=== PATIENT | male | born 1970 | race Caucasian/White ===

== ENCOUNTER 2023-12-16 20:00 | Emergency (ER) | payer OTHER, SELFPAY ==
[2023-12-16 20:01] VITALS: BP 163/108; PULSE 53; RESP 16; TEMP 36.3; O2SAT 100
--- NOTE | 2023-12-16 20:15 | DI.CT_ITS ---
Exam(s) CT ABDOMEN PELVIS W EXAM: CT ABDOMEN PELVIS W CLINICAL HISTORY: LUQ tenderness. TECHNIQUE: Imaging Protocol: Axial computed tomography images with coronal and sagittal reformatted images were created and reviewed CONTRAST MATERIAL: Intravenous: Omnipaque 350 Contrast volume:100 ml Oral: no COMPARISON: No exams were available for comparison FINDINGS: ABDOMEN and PELVIS: Lung Bases: No acute findings. Liver: Moderate steatosis. No suspicious mass. Gallbladder and biliary tract: No radiodense calculus. No biliary dilation. Pancreas: Normal density. No abnormal calcifications or inflammatory process. No evidence of mass. Spleen: Normal. Kidneys: Normal size, contour and axis. No radiodense stones. No obstructive uropathy. Cyst lower p ole right kidney. No follow-up recommended. No suspicious masses seen. Adrenal glands: No masses seen. Vasculature: Abdominal aorta non-dilated. Soft tissues: Unremarkable. Bladder: No gross wall thickening. No calculi.No focal mass. Bowel: No obstruction. No bowel wall thickening. Mild diverticulosis. Appendix normal. Peritoneal cavity: No ascites. No focal collection. No mesenteric inflammatory response. Bones: Left L5 spondylolysis. No evidence of spondylolisthesis. Mild degenerative changes. Reproductive organs: Unremarkable. Lymph nodes: No pathologically enlarged lymph nodes. IMPRESSION:: No acute abnormality in the abdomen or pelvis. RADIATION DOSE DELIVERED: 522.08mGy.cm Total DLP DATA REPOSITORY: All CT scans at this facility are submitted to the National Radiology Data Registry (NRDR) Dose Index Registry (DIR) with the [employer] ([employer]). RADIATION OPTIMIZATION: All CT scans at this facility use at least one of these dose optimization te chniques: automated exposure control; mA and/or kV adjustment per patient size (includes targeted exa ms where dose is matched to clinical indication); or iterative reconstruction.
--- NOTE | 2023-12-16 20:19 | W.ED.GENAD ---
Discharge Plan Disposition Patient Disposition: Home Condition: Stable Discharge Details Clinical Impression: Abdominal pain of unknown cause Primary Care Provider: None,None ED Provider: Jermain Hinkle Home Meds and New Rx's Prescriptions: Continued metoprolol tartrate 25 mg tablet 25 mg PO BID pravastatin 20 mg tablet 20 mg PO QHS aspirin 81 mg capsule 81 mg PO DAILY omega 0-zka-xtm-fish oil [Fish Oil] 1,200 (144-216) mg capsule 1,200 cap PO BID PRN Discharge Instructions Instructions: Abdominal Pain, Adult ED Additional Instructions: You were seen in the emergency department for your left-sided abdominal pain, this may be an abdominal wall muscle strain or constipation, we are providing MiraLAX for trial of relief at home, please seek GI referral from your primary care provider, please return to the ER for fever, nausea vomiting of an intractable nature, black or bloody stools, severe increase in abdominal pain. There was no acute emergent findings on your laboratory workup besides a mild elevation of bilirubin likely due to your known fatty liver issues, there is no signs of infection or electrolyte abnormality. HPI General Date/Time Provider Initiated Documentation: 12/16/23 20:11. HPI Narrative: 53 year-old male presents to ED today by POV/ambulating with a chief complaint of L sided abdominal pain, nausea, loose stools, progressing over the past 10 days. Quality described as sharp pain in L abdomen, no radiation to black or bloody stools, intractable vomiting, fever, cough, shortness of breath, chest pain. Severity is described as severe. Palliating factors include tried cutting out various food groups with no success. Provoking factors include nothing specific. Events leading up to the incident/Associated Symptoms: Patient denies abdominal surgical history. Patient not anticoagulated. Related Data Home Medications ?Medication ?Instructions ?Recorded ?Confirmed aspirin 81 mg capsule 81 mg PO DAILY 12/16/23 12/16/23 metoprolol tartrate 25 mg tablet 25 mg PO BID 12/16/23 12/16/23 omega 9-prt-wsu-fish oil 1,200 mg 1,200 cap PO BID PRN 12/16/23 12/16/23 (144 mg-216 mg) capsule (Fish Oil) pravastatin 20 mg tablet 20 mg PO QHS 12/16/23 12/16/23 Allergies Allergy/AdvReac Type Severity Reaction Status Date / Time No Known Allergies Allergy Unverified 12/16/23 20:08 General Stated Complaint: Abd Prob ROXY: 3 Review of Systems All systems reviewed & are unremarkable except as noted in HPI and below Exam Narrative Exam Narrative: GENERAL APPEARANCE: Well-nourished, non-toxic, awake and alert, atraumatic, no acute distress. SKIN: Warm, pink, dry, intact, without rashes/lesions/ulcerations. HEAD: Normocephalic, atraumatic, normal hair distribution for gender/age. EYES: Normal conjunctiva, no exudates on lids/lashes. ENT: Nares patent, no circumoral cyanosis, no facial swelling NECK: Supple, trachea midline, painless cervical ROM. LUNGS/CHEST: Lungs CTA bilaterally, non-labored respirations, normal A/P diameter, symmetrical expansion, no chest wall deformity HEART (CV/PV): Regular rate and rhythm without murmur, no peripheral edema, no JVD. ABDOMEN: Soft, non-distended, no guarding, L sided abdominal tenderness over oblique area, negative Yeung's sign, no McBurney's point tenderness, no Rovsing's, no rebound tenderness. MSK: Normal ROM, no swelling/deformity to bilateral UEs or LEs, moving all extremities without weakness, no cyanosis, spine midline without tenderness, normal curvature. NEURO: Mental Status AAOx4 - alert to person, place, time, events No facial droop, no forehead involvement. Motor: No focal weakness - strength 5/5 in bilateral UEs and LEs, proximal and distal, symmetric. Sensory: sensation intact to light touch globally. Gait normal: patient ambulated without ataxia into ED room. PSYCH: euthymic, cooperative, pleasant, appropriate speech Course Vital Signs Vital signs: Vital Signs Temperature 36.3 C L 12/16/23 20:01 Pulse 53 L 12/16/23 20:01 Respiratory Rate 16 12/16/23 20:01 Blood Pressure 163/108 H 12/16/23 20:01 Pulse Oximetry 100 12/16/23 20:01 Temperature 36.3 C L 12/16/23 20:01 Temperature Source Temporal Artery Scan 12/16/23 20:01 Pulse 53 L 12/16/23 20:01 Respiratory Rate 16 12/16/23 20:01 Respiratory Effort Normal 12/16/23 20:07 Blood Pressure 163/108 H 12/16/23 20:01 Blood Pressure Position Sitting 12/16/23 20:01 Pulse Oximetry 100 12/16/23 20:01 Oxygen Delivery Method Room Air 12/16/23 20:01 Oxygen Flow Rate 0 12/16/23 20:01 Pain Level 3 12/16/23 20:01 Medical Decision Making This dictation utilizes [id number] dictation software and may contain unedited grammatical errors. 53 year-old male presents to ED today by POV/ambulating with a chief complaint of L sided abdominal pain, nausea, loose stools, progressing over the past 10 days. Quality described as sharp pain in L abdomen, no radiation to black or bloody stools, intractable vomiting, fever, cough, shortness of breath, chest pain. Severity is described as severe. Palliating factors include tried cutting out various food groups with no success. Provoking factors include nothing specific. Events leading up to the incident/Associated Symptoms: Patient denies abdominal surgical history. Patients' medical history: noncontributory. Family and social history: noncontributory. Pertinent exam findings / vital signs include left-sided abdominal tenderness over the lower ribs/oblique area, no overt left lower quadrant tenderness or McBurney's point tenderness, negative Yeung sign, nontoxic and afebrile, benign cardiopulmonary exam. Differential / pathologies of concern include colitis, diverticulitis, inflammatory bowel disease, IBS, renal colic, pancreatitis, gastritis, gastroenteritis. Diagnostic studies of: -CBC, CMP, lipase, magnesium, lactate, procalcitonin, CRP/ESR, Conj. Bilirubin, UA, CT abdomen/pelvis with contrast. -CBC shows no leukocytosis or other abnormalities -Lactate negative, procalcitonin negative-do not suspect sepsis -CMP shows no electrolyte abnormalities, does show significantly elevated bilirubin at 2.9, reflex to conjugated bilirubin shows elevation to 0.4. -UA shows trace blood and urobilinogen -CRP/ESR negative -CT shows possible fatty liver, moderate amount of stool, no other emergent abnormalities Interventions of: -1L IVF LR, 1g IV APAP, 15mg IV toradol, 4mg IV Zofran. ED Course/Assessment/Plan: 53-year-old male presents with progressing left-sided abdominal pain and nausea for the past 10 days, he has a known fatty liver issue mildly elevated bilirubin on labs, there is no evidence of emergent pathology on CT, no obstruction, I do recommend he try MiraLAX at home tonight, take Tylenol and ibuprofen and seek GI referral from primary care, strict return criteria for severe increase in abdominal pain, black or bloody stools, intractable nausea or vomiting, fevers. Findings not consistent with SBO, diverticulitis, Crohn's/IBD, biliary pathology. Disposition of Abdominal pain of unknown cause. Patient verbalized understanding of the plan and return to ED criteria and engaged in shared decision making. Medical Records Medical records reviewed: Yes I reviewed the patient's medical records. Imaging Data Radiologic Study: Attestation: I personally reviewed and interpreted this imaging study as follows: Imaging: CT Scan My impression: Moderate amount of stool, no obstruction, no diverticulitis, no gallstones/dilated biliary tree Radiologist's impression: Exam: CT Abdomen And Pelvis With Contrast Exam date and time: 12/16/2023 8:40 PM Age: 53 years old Clinical indication: Abdominal pain; Localized; Left upper quadrant (luq); Patient HX: Luq pain for 10 days TECHNIQUE: Imaging protocol: Computed tomography of the abdomen and pelvis with contrast. Radiation optimization: All CT scans at this facility use at least one of these dose optimization techniques: automated exposure control; mA and/or kV adjustment per patient size (includes targeted exams where dose is matched to clinical indication); or iterative reconstruction. Contrast material: OMNIPAQUE 350; Contrast volume: 100 ml; Contrast route: INTRAVENOUS (IV); COMPARISON: No relevant prior studies available. FINDINGS: Lungs: Minimal dependent atelectasis. Liver: Possible fatty infiltration of the liver, difficult to confidently diagnose by CT imaging after administration of intravenous contrast. Gallbladder and biliary ducts: Gallbladder partially collapsed. No calcified gallstones seen. No biliary dilatation. Pancreas: Normal appearing pancreas. Spleen: Normal appearing spleen. Adrenal glands: Normal appearing adrenal glands. Kidneys and ureters: 3 cm right renal cyst. Small indeterminate hypoattenuating right renal lesion, not well characterized but statistically most likely a small renal cyst. Otherwise normal-appearing kidneys. No obstructing ureteral stones, hydronephrosis, or evidence of recent stone passage. Stomach and bowel: No oral contrast. Stomach partially distended with ingested material. No small bowel dilatation to suggest obstruction. Normal-appearing colon. No evidence of diverticulitis or colitis. Appendix: Normal appendix. Intraperitoneal space: No gross ascites or free air. Vasculature: Normal caliber abdominal aorta. Lymph nodes: No pathologically enlarged mesenteric, retroperitoneal, or pelvic sidewall lymph nodes. Urinary bladder: Urinary bladder partially decompressed but circumferentially thick-walled with hazy indistinctness of the bladder margins. Reproductive: Normal-appearing prostate gland and seminal vesicles. Bones/joints: No acute fracture seen among the bones of the abdomen or pelvis. Spondylolysis on the left and spina bifida occulta at L5. No associated spondylolisthesis. Small anterior osteophytes at multiple levels. Soft tissues: Small fat containing ventral hernia at the umbilicus. IMPRESSION: 1. No acute bowel pathology demonstrated. 2. No obstructing ureteral stones, hydronephrosis, or evidence of recent stone passage. 3. Urinary bladder partially decompressed but circumferentially thick-walled with hazy indistinctness of the bladder margins. Acute cystitis could have this appearance although an artifactual appearance created by underdistention can also produce apparent bladder wall thickening. Clinical correlation is recommended. 4. Possible fatty infiltration of the liver, difficult to confidently diagnose by CT imaging after administration of intravenous contrast. Dictated and Authenticated by: Pilo Mirza MD. Lab Data Lab results reviewed: Yes I reviewed the patient's lab results. Labs: Laboratory Tests Range/Units 12/16/23 12/16/23 12/16/23 20:32 20:37 20:44 WBC (4.4-10.8) 10^3/uL 4.12 L RBC (4.36-5.78) 10^6/uL 4.88 Hgb (13.5-17.5) g/dL 14.7 Hct (40.0-50.0) % 41.7 MCV (80-95) fL 86 MCH (27.0-33.0) pg 30.1 MCHC (32.0-36.0) % 35.3 RDW (11.8-14.1) % 12.2 Plt Count (130-400) 10^3/uL 154 MPV (8.0-11.0) fL 9.3 Immature Gran % % 0.2 Neutrophils % % 46.7 Lymphocytes % % 37.6 Monocytes % % 12.6 Eosinophils % % 2.4 Basophils % % 0.5 Nucleated RBC % (0.0-0.3) % 0.0 Absolute Neutrophils (1.2-6.7) 10^3/uL 1.92 Absolute Lymphocytes (1.2-3.4) 10^3/uL 1.55 Absolute Monocytes (0.1-0.8) 10^3/uL 0.52 Absolute Eosinophils (0.0-0.7) 10^3/uL 0.10 Absolute Basophils (0.0-0.2) 10^3/uL 0.02 ESR (0-20) mm/hr < 1 VBG Lactate (0.6-1.4) mmol/L 1.1 Sodium (136-145) mmol/L 139 Potassium (3.5-5.1) mmol/L 4.3 Chloride (98-107) mmol/L 104 Carbon Dioxide (21.0-32.0) mmol/L 28.4 Anion Gap (3-11) mmol/L 6.6 BUN (7-18) mg/dL 18 Creatinine (0.70-1.30) mg/dL 1.3 Est GFR (CKD-EPI 2020) (mL/min/1.73m2) 66.10 Glucose (74-106) mg/dL 107 H Calcium (8.5-10.1) mg/dL 9.4 Magnesium (1.8-2.4) mg/dL 2.1 Total Bilirubin (0.2-1.0) mg/dL 2.92 H Conjugated Bilirubin (0.0-0.2) mg/dL 0.4 H AST (15-37) U/L 30 ALT (16-63) U/L 76 H Alkaline Phosphatase (46-116) U/L 84 C-Reactive Protein (<or=0.5) mg/dL < 0.50 Total Protein (6.4-8.2) g/dL 7.0 Albumin (3.4-5.0) g/dL 4.1 Lipase (16-77) U/L 70 Procalcitonin ng/mL < 0.1 Urine Color (Yellow) Yellow Urine Clarity (Clear) Clear Urine pH (5-8) 6.5 Ur Specific [place] (1.005-1.025) 1.025 Urine Protein (Neg-Trace) mg/dL Negative Urine Ketones (Negative) mg/dL Negative Urine Blood (Negative) Trace-intact H Urine Nitrite (Negative) Negative Urine Bilirubin (Negative) Negative Urine Urobilinogen (Up to 0.2) mg/dL 1.0 H Ur Leukocyte Esterase (Negative) Negative Urine RBC (0-2) HPF 3-5 H Urine WBC (0-5) HPF 0-2 Ur Epithelial Cells (Negative) HPF Negative Urine Crystals (Negative) HPF Negative Urine Bacteria (Negative) HPF Negative Urine Casts (Negative) LPF Negative Urine Mucus (Negative) Negative Ur Culture Indicated? No Urine Glucose (Negative) mg/dL Negative Quality:SDOH Health Related Social Needs: No Data to Display PFSH All Active Problems (Updated 12/16/23 @ 22:01 by SABA Patel) Abdominal pain of unknown cause (Acute) Social History Smoking risk assessment performed?: No
[2023-12-16] MEDS: Omnipaque 350 MG/ML 100 ML BTL IJ (20:47)
[2023-12-16] MEDS: Normal Saline - Diluent 50 ML VIAL IJ (20:48)
[2023-12-16 20:50] LABS: ESR < 1 mm/hr (0-20); Lactate 1.1 mmol/L (0.6-1.4)
[2023-12-16] MEDS: Ketorolac 15 MG/ML VIAL IVP (20:50)
[2023-12-16] MEDS: ACETAMINOPHEN 1,000 MG/100 ML BTL 400 MG IVPB (20:50)
[2023-12-16] MEDS: Ondansetron 4 MG/2 ML VIAL IVP (20:51)
[2023-12-16] MEDS: Lactated Ringers 1,000 ML 1000 ML IV (20:51)
[2023-12-16 20:53] LABS: Abs Immature Grans 0.01 10^3/uL (0.0-0.06); Absolute Basophil Count 0.02 10^3/uL (0.0-0.2); Absolute Lymphocyte Count 1.55 10^3/uL (1.2-3.4); Absolute Monocyte Count 0.52 10^3/uL (0.1-0.8); Absolute Neutrophil Count 1.92 10^3/uL (1.2-6.7); Basophils % 0.5 %; Eosinophils % 2.4 %; HCT 41.7 % (40.0-50.0); HGB 14.7 g/dL (13.5-17.5); Immature Grans % 0.2 %; Lymphocytes % 37.6 %; MCH 30.1 pg (27.0-33.0); MCHC 35.3 % (32.0-36.0); MCV 86 fL (80-95); MPV 9.3 fL (8.0-11.0); Monocytes % 12.6 %; Neutrophils % 46.7 %; Platelet Count 154 10^3/uL (130-400); RBC 4.88 10^6/uL (4.36-5.78); RDW 12.2 % (11.8-14.1); RDW-SD 37.8 fL; WBC 4.12 10^3/uL (4.4-10.8)
[2023-12-16 20:57] LABS: Bilirubin Negative (Negative); Blood Trace-intact (Negative); Clarity Clear (Clear); Glucose Negative (Negative); Ketones Negative (Negative); Leukocyte Esterase Negative (Negative); Nitrite Negative (Negative); Specific Gravity 1.025 (1.005-1.025); pH 6.5 (5-8)
[2023-12-16 21:02] LABS: Bacteria Negative HPF (Negative); C & S Indicated? No; Casts Negative LPF (Negative); Crystals Negative HPF (Negative); Epithelial Cells Negative HPF (Negative); Mucus Negative (Negative); WBC 0-2 HPF (0-5)
[2023-12-16 21:08] LABS: ALT 76 U/L (16-63); AST 30 U/L (15-37); Albumin 4.1 g/dL (3.4-5.0); Alkaline Phosphatase 84 U/L (46-116); Anion Gap 6.6 mmol/L (3-11); BUN 18 mg/dL (7-18); Bilirubin, Total 2.92 mg/dL (0.2-1.0); CO2 28.4 mmol/L (21.0-32.0); CREATININE 1.3 mg/dL (0.70-1.30); Calcium 9.4 mg/dL (8.5-10.1); Chloride 104 mmol/L (98-107); Glucose 107 mg/dL (74-106); Lipase 70 U/L (16-77); Magnesium 2.1 mg/dL (1.8-2.4); Potassium 4.3 mmol/L (3.5-5.1); Sodium 139 mmol/L (136-145)
[2023-12-16 21:10] LABS: C-Reactive Protein < 0.50 mg/dL (<or=0.5)
[2023-12-16 21:22] LABS: Procalcitonin < 0.1 ng/mL
[2023-12-16 21:39] LABS: Bilirubin, Direct 0.4 mg/dL (0.0-0.2)
--- NOTE | 2023-12-16 21:52 | DI.VRAD_ITS ---
PROCEDURE INFORMATION: Exam: CT Abdomen And Pelvis With Contrast Exam date and time: 12/16/2023 8:40 PM Age: 53 years old Clinical indication: Abdominal pain; Localized; Left upper quadrant (luq); Patient HX: Luq pain for 10 days TECHNIQUE: Imaging protocol: Computed tomography of the abdomen and pelvis with contrast. Radiation optimization: All CT scans at this facility use at least one of these dose optimization techniques: automated exposure control; mA and/or kV adjustment per patient size (includes targeted exams where dose is matched to clinical indication); or iterative reconstruction. Contrast material: OMNIPAQUE 350; Contrast volume: 100 ml; Contrast route: INTRAVENOUS (IV); COMPARISON: No relevant prior studies available. FINDINGS: Lungs: Minimal dependent atelectasis. Liver: Possible fatty infiltration of the liver, difficult to confidently diagnose by CT imaging after administration of intravenous contrast. Gallbladder and biliary ducts: Gallbladder partially collapsed. No calcified gallstones seen. No biliary dilatation. Pancreas: Normal appearing pancreas. Spleen: Normal appearing spleen. Adrenal glands: Normal appearing adrenal glands. Kidneys and ureters: 3 cm right renal cyst. Small indeterminate hypoattenuating right renal lesion, not well characterized but statistically most likely a small renal cyst. Otherwise normal-appearing kidneys. No obstructing ureteral stones, hydronephrosis, or evidence of recent stone passage. Stomach and bowel: No oral contrast. Stomach partially distended with ingested material. No small bowel dilatation to suggest obstruction. Normal-appearing colon. No evidence of diverticulitis or colitis. Appendix: Normal appendix. Intraperitoneal space: No gross ascites or free air. Vasculature: Normal caliber abdominal aorta. Lymph nodes: No pathologically enlarged mesenteric, retroperitoneal, or pelvic sidewall lymph nodes. Urinary bladder: Urinary bladder partially decompressed but circumferentially thick-walled with hazy indistinctness of the bladder margins. Reproductive: Normal-appearing prostate gland and seminal vesicles. Bones/joints: No acute fracture seen among the bones of the abdomen or pelvis. Spondylolysis on the left and spina bifida occulta at L5. No associated spondylolisthesis. Small anterior osteophytes at multiple levels. Soft tissues: Small fat containing ventral hernia at the umbilicus. IMPRESSION: 1. No acute bowel pathology demonstrated. 2. No obstructing ureteral stones, hydronephrosis, or evidence of recent stone passage. 3. Urinary bladder partially decompressed but circumferentially thick-walled with hazy indistinctness of the bladder margins. Acute cystitis could have this appearance although an artifactual appearance created by underdistention can also produce apparent bladder wall thickening. Clinical correlation is recommended. 4. Possible fatty infiltration of the liver, difficult to confidently diagnose by CT imaging after administration of intravenous contrast. Dictated and Authenticated by: Pilo Mirza MD. Ordering:ISHMAEL Aly MD
[2023-12-16 21:56] VITALS: BP 138/88; PULSE 57; RESP 12; TEMP 36.6; O2SAT 99
== END 2023-12-16 22:41 | disposition home or self-care (01) ==
PROVIDERS: Emergency Provider Physician Assistant
DX: R10.12 Left upper quadrant pain (principal); R11.0 Nausea; Z79.82 Long term (current) use of aspirin
CPT/HCPCS: 80053; 83690; 84145; 85652; 96365; 96375; 99285; 74177; 81003; 81015; 82248; 83605; 83735; 85025; 86140; 99284; J0131; J1885; J2405; J3490

== ENCOUNTER 2024-05-15 02:02 | Outpatient (CLI) | payer OTHER, SELFPAY ==
[2024-05-15 08:46] LABS: Calculated LDL 92 mg/dL (<100); Cholesterol 174 mg/dL (<200); HDL Cholesterol 49 mg/dL (40-60); Triglyceride 167 mg/dL (<150)
[2024-05-15 08:50] LABS: Hemoglobin A1C 5.1 % (<5.7)
[2024-05-15 23:31] LABS: PSA, Screening 1.2 ng/mL (<=3.5)
== END 2024-05-15 02:03 | disposition home or self-care (01) ==
LOC: LBO 02:02
PROVIDERS: PCP Nurse Practitioner Family; Visit Provider Nurse Practitioner Family
DX: Z12.5 Encounter for screening for malignant neoplasm of prostate (principal); Z13.1 Encounter for screening for diabetes mellitus; Z13.220 Encounter for screening for lipoid disorders
CPT/HCPCS: 36415; 80061; 84153; 83036